=== PATIENT | male | born 1975 | race Two or more races ===

== ENCOUNTER 2019-06-17 21:36 | Emergency (ER) | payer OTHER ==
[~2019-06-17] VITALS: Ht 182.9 cm; Wt 113.4 kg
--- NOTE | 2019-06-17 22:16 | NUR ---
XRAY DONE AT THE BEDSIDE.
[2019-06-17] MEDS ORDERED: IBUPROFEN 400 MG TABLET ONE (22:54)
[2019-06-17] MEDS ORDERED: IBUPROFEN 400 MG TABLET PO ONE (23:00)
[2019-06-17 23:12] VITALS: BP 128/78
--- NOTE | 2019-06-17 23:12 | NUR ---
PT REC'D AN HITESH BANDAGE TO THE RT ANKLE. Patient discharged to home in stable condition. Written and verbal after care instructions given. Patient verbalizes understanding of instruction AND RX. Crutches dispensed. Pt instructed on proper use of crutches. Patient able to demonstrate correct use of crutches.VSS
== END 2019-06-17 23:12 | disposition home or self-care (01) ==
LOC: ER 21:42
DX: S93.491A Sprain of other ligament of right ankle, initial encounter (principal); X50.1XXA Overexertion from prolonged static or awkward postures, initial encounter; Y93.89 Activity, other specified; Y92.89 Other specified places as the place of occurrence of the external cause; Y99.8 Other external cause status
CPT/HCPCS: 73610-TC